=== PATIENT | male | born 1955 | race Caucasian/White ===

== ENCOUNTER → 2017-12-16 | Day surgery (SDC) | payer MEDICARE ==
[~2017-12-16] MED LIST: Bisacodyl PR; IV RINGERS,LACTATED 1000ML 1,000 ML IV SCH; NAPR-683 PO; NITR100C62 PO; PROPOFOL 20 ML IV ONE
--- NOTE | 2017-12-16 10:57 | PDOC1 ---
HISTORY & PHYSICAL H&P Adalid Milton [id number] 1955 12/02/2017 02:30 PM 03/31 [place] [facility], [facility] OUR PATIENTS COME FIRST [address] [place] [address] Ph. [phone] Patient: Adalid Milton Date of : 1955 Date: 12/02/2017 2:30 PM Visit Type: Office Visit This 62 year old male presents for dysphagia. History of Present Illness: 1. dysphagia Adalid Milton is a 62 year old male who presents for evaluation of dysphagia. The problem is ongoing. The onset was gradual. The severity is mild. The symptoms happen with dry food, bread and meat. He describes food sticking in the mid chest. The symptoms are felt to be related to Has issue cognitive function. There are no aggravating factors. There are no relieving factors. The pertinent history includes: H/o GERD beofre. Had been on meds. Not now because it caused more issue. He has had no prior studies. INTAKE COMMENTS: Intake Comments: patient states he is here because he is having trouble swallowing PROBLEM LIST: Problem Description Onset Date Chronic Clinical Status Notes GERD without esophagitis 10/09/2015 Cancer 07/11/2014 N PAST MEDICAL/SURGICAL HISTORY (Detailed) Disease/disorder Onset Date Management Date Comments Hernia repair 2000 GERD left AKA with hemipelvectomy 1978 for cancer small bowel obstruction with small bowel resectioin traumataic brain injury age 3 Family History (Detailed) Relationship Family Member Name Age at Condition Onset Age Cause of Mother Heart disease N Social History: (Detailed) Preferred language is [place] Zealander. Tobacco use status: Never smoked tobacco. Smoking status: Never smoker. TOBACCO/VAPING EXPOSURE No passive smoke exposure. ALCOHOL There is no history of alcohol use. CAFFEINE The patient uses caffeine: coffee - 2 cups a day. LIFESTYLE DIET healthy. HOME ENVIRONMENT/SAFETY The home has smoke detectors. Carbon monoxide detector at home. The home does not have radon present. Uses seat belts. Medications (active prior to today) Medication Name Sig Description Start Date Stop Date Refilled Rx Elsewhere Fish Oil Concentrate 1,000 mg capsule 1 po dialy 10/09/2015 N multivitamin tablet take 1 tablet by oral route every day with food 10/09/2015 N Laxative (bisacodyl) 5 mg tablet take 1 tablet by oral route every day 2015 N Tums E-X 300 mg (750 mg) chewable tablet 1 po every hs 04/03/2016 N Medication Reconciliation Medications reconciled today. Medication Reviewed Adherence Medication Name Sig Desc Elsewhere Status taking as directed Fish Oil Concentrate 1,000 mg capsule 1 po dialy N Verified taking as directed multivitamin tablet take 1 tablet by oral route every day with food N Verified taking as directed Laxative (bisacodyl) 5 mg tablet take 1 tablet by oral route every day N Verified taking as directed Tums E-X 300 mg (750 mg) chewable tablet 1 po every hs N Verified Medications (Added, Continued or Stopped today) Start Date Medication Directions PRN Status PRN Reason Instruction Stop Date 10/09/2015 Fish Oil Concentrate 1,000 mg capsule 1 po dialy N 10/09/2015 Laxative (bisacodyl) 5 mg tablet take 1 tablet by oral route every day N 10/09/2015 multivitamin tablet take 1 tablet by oral route every day with food N 04/03/2016 Tums E-X 300 mg (750 mg) chewable tablet 1 po every hs N Allergies: Ingredient Reaction (Severity) Medication Name Comment NO KNOWN ALLERGIES ORDERS: Status Lab Order Time Frame Comments ordered Enema, therapeutic (contrast or air); for reduction of intussusception or obstruction -today ordered follow-up visit with Francine Argueta APRN after testing is done. ordered BMP -today ordered CBC w/diff -today ordered Lipid Panel -today ordered TSH -today ordered PSA -today ordered follow-up visit in 6 Months in 6 Months ordered LFT -today ordered Lipid Profile -today ordered TSH 3rd Generation -today ordered PSA -today ordered follow-up visit in 1 Year in 1 Year ordered BMP -today ordered X-RAY EXAM OF ANKLE Right ordered X-RAY EXAM OF LOWER LEG Right ordered follow-up visit in 6 Months in 6 Months ordered BMP -today ordered LFT -today ordered Lipid Profile -today ordered PSA -today ordered TSH -today ordered follow-up visit in 6 Months or by 05/27/2018 in 6 Months or by 2018 ordered Referrals: Gastroenterology. Evaluate and treat cant swallow meats. says it gets stuck in chest. evaluate for egd and possible esophageal dilatation ordered EGD w/ dilation over guidewire -today ordered follow-up visit with Lavelle Joyner MD upon completion of work-up upon completion of work-up System Neg/Pos Details Constitutional Negative Chills, Fever and Malaise. ENMT Negative Sore throat. Eyes Negative Double vision. Respiratory Negative Dyspnea and Wheezing. Cardio Negative Chest pain and Irregular heartbeat/palpitations. GI Positive See HPI. GI Negative See HPI. Negative Dysuria and Hematuria. Endocrine Negative Cold intolerance and Heat intolerance. Psych Negative Anxiety. Integumentary Negative Hives and Rash. MS Negative Joint pain. Peter/Lymph Negative Easy bleeding and Easy bruising. Allergic/Immuno Negative Food allergies. Vital Signs Time BP mm/Hg Pulse /min Resp /min Temp F Ht ft Ht in Ht cm Wt lb Wt kg BMI kg/ m2 BSA m2 O2 Sat% 2:30 PM 100/60 76 14 97.7 96 Comments Time Comments 2:30 PM Unable to obtain Weight. Measured By Time Measured by 2:30 PM Belkis Swygert PHYSICAL EXAM: Exam Findings Details Male GI Quick Exam Comments Left leg amputation from pelvis Constitutional Normal Well developed. Eyes Normal Conjunctiva - Right: Normal, Left: Normal. Sclera - Right: Normal, Left: Normal. Nasopharynx Normal Lips/teeth/gums - Normal. Neck Exam Normal Inspection - Normal. Thyroid gland - Normal. Respiratory Normal Inspection - Normal. Auscultation - Normal. Cardiovascular Normal Regular rate and rhythm. No murmurs, gallops, or rubs. Abdomen Normal Inspection - Normal. Anterior palpation - No guarding. No abdominal tenderness. No hepatic enlargement. No spleen enlargement. No hernia. No ascites. Skin Normal Inspection - Normal. Extremity Normal No edema. Psychiatric Normal Orientation - Oriented to time, place, person & situation. Appropriate mood and affect. Assessment/Plan # Detail Type Description 1. Assessment Dysphagia, unspecified type (R13.10). Patient Plan schedule EGD at [facility] Plan Orders Further diagnostic evaluations ordered today include(s) EGD w/ dilation over guidewire to be performed today. He is to schedule a follow-up visit with Lavelle Joyner MD upon completion of work-up. Co-Sign Orders Order Ordering Provider Cosigned Name Cosigned Date Cosigner Comments EGD w/ dilation over guidewire Lavelle Joyner 12/02/2017 follow-up visit with Lavelle Joyner MD upon completion of work-up Lavelle Joyner 12/02/2017 Active Patient Care Team Members Name Contact Agency Type Support Role Relationship Active Date Inactive Date Specialty Abisai Joyner MD Patient provider PCP Internal Med Provider: Lavelle Joyner MD 12/02/2017 2:47 PM Shabnam Loza MD[facility]; Luis Rose MD Internal Medicine; Yann Sims MD, Internal Medicine; Abisai Joyner MD Internal Medicine; Lavelle Joyner MD, Gastroenterology; Deon Le MD, Rheumatology, J. BurnhamMegan JORGENSENN ------ 12/16/17 Patient seen and examined. No change in H&P. LAVELLE JOYNER MD Dec 16, 2017 10:57
[2017-12-16 12:00] VITALS: BP 121/75
--- NOTE | 2017-12-18 09:13 | PATHOLOGY ---
[facility] Accession Number: [id number] . 01 Material submitted: . PART A: BIOPSY DISTAL ESOPHAGUS STRICTURE PART B: BIOPSY MIDDLE ESOPHAGUS . 01 Clinical history: . Pre-OP DX: Dysphagia Post-OP DX: Esophageal stricture, Cindy, esophagitis . 02 Diagnosis: A. Esophageal biopsies, distal esophageal stricture: - Segments of esophagogastric and gastric mucosa showing chronic inflammation. . B. Esophageal biopsy, middle esophagus: - Segment of mildly hyperplastic squamous esophageal mucosa showing focal presence of yeast and pseudohyphae consistent with Cindy esopagitis. [facility]/12/18/2017 . 02 Comment: Sections of the distal esophageal stricture biopsies reveal segments of esophagogastric and gastric mucosa showing [id number] chronic inflammation. There is no evidence of Hoskins's change, dysplasia, or malignancy. Sections of the middle esophagus biopsy reveal a segment of tangentially-oriented hyperplastic squamous esophageal mucosa showing focal chronic inflammation. There are focal colonies of bacteria present on the mucosal surface. A PAS stain for yeast/fungus also reveal admixed yeast and pseudohyphae consistent with Cindy esophagitis. . Special stain performed: PAS stain for yeast / fungus on B1. . (JPM:mmamarjit; 12/17/17) . 02 Electronically signed: . Domenic Gao MD, Pathologist NPI- [id number] . 01 Gross description: . A. Received in formalin labeled "Adalid Milton BX distal esophagus stricture," are 2 segments of witt soft tissue measuring 0.8 x 0.2 x 0.2 cm in aggregate dimensions and ranging from 0.3 to 0.5 cm in maximum dimension. The specimen is submitted entirely in cassette A1. . B. Received in formalin labeled "Milton, Adalid, BX middle esophagus," is a single segment of witt soft tissue measuring 0.5 cm in maximum dimension. The specimen is entirely submitted in cassette B1. (TSD; 12/16/2017) TOB/TOB . 02 Pathologist provided ICD-10: K20.9, B37.81 . 02 CPT . 035665, 866540, 419279 Specimen Comment: A courtesy copy of this report has been sent to Specimen Comment: [phone]. Specimen Comment: Report sent to / DR WASHBURN Performed at: 01 [facility] [address] [id number] MD Joseph Hatch MD Phone: [phone] Performed at: 02 [facility] [address] [place], [place] [id number] MD Domenic Gao MD Phone: [phone]
== END | disposition home or self-care (01) ==
LOC: SURG 10:34
PROVIDERS: ATTEND Internal Medicine Gastroenterology
DX: K22.2 Esophageal obstruction (principal); B37.81 Candidal esophagitis; Z88.8 Allergy status to other drugs, medicaments and biological substances; Z98.890 Other specified postprocedural states; Z82.49 Family history of ischemic heart disease and other diseases of the circulatory system; Z79.899 Other long term (current) drug therapy
CPT/HCPCS: 43239; 43249; 88305; 88313; J2704

== ENCOUNTER 2018-01-08 12:04 | Emergency (ER) | payer MEDICARE ==
[~2018-01-08] VITALS: Ht 162.6 cm; Wt 74.8 kg
[~2018-01-08 12:04] MED LIST changes: -IV RINGERS,LACTATED 1000ML 1,000 ML IV SCH; -PROPOFOL 20 ML IV ONE
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
[2018-01-08 13:01] LABS: BILIRUBIN,URINE NEGATIVE (NEG); CLARITY,URINE CLEAR; COLOR,URINE YELLOW; NITRITE,URINE NEGATIVE (NEG); PH,URINE 6.5; PROTEIN,URINE NEGATIVE (NEG-TRACE); UROBILINOGEN,URINE 0.2 mg/dL (0.2 mg/dL)
--- NOTE | 2018-01-08 13:04 | EKG ---
[facility] [address] [place] [address] Test Date: 2018-01-08 Test Time: 12:34:56 Pat Name: CHELSEA KAHN Department: Room: Gender: M Shower Maid: : 1955 Requested By: CHRISTINE VASQUEZ Order Number: [id number] Reading MD: Jose Reyes MD Measurements Intervals Ward Rate: 78 P: -43 NH: 222 QRS: 2 QRSD: 74 T: 20 QT: 354 QTc: 407 Interpretive Statements SINUS RHYTHM PROLONGED NH INTERVAL Electronically Signed On 01-12-2018 8:43:17 CDT by Jose Reyes MD
[2018-01-08 13:27] LABS: BACTERIA,URINE 0 /HPF (0-FEW); RBC,URINE 0 /HPF (0-2); SQUAMOUS EPITHELIAL CELL,UR OCC /LPF; WBC,URINE 0 /HPF (0-4)
--- NOTE | 2018-01-08 13:33 | RAD ---
Rib series including frontal chest radiograph and 4 views of the right ribs 01/08/2018 INDICATION: Fall. Right-sided chest pain. COMPARISON STUDY: Abdominal series May 26, 2014. FINDINGS: No pneumothorax or pleural effusion is seen. The right hemidiaphragm is elevated. Heart size is normal. No focal consolidative infiltrate is seen. No displaced rib fractures are identified. IMPRESSION: No evidence of displaced rib fracture or other acute cardiopulmonary process Electronically signed by: Hubert Frazier MD (01/08/2018 1:30 PM) [facility]
--- NOTE | 2018-01-08 15:06 | RAD ---
Examination: Single frontal view the pelvis HISTORY: History of right hip pain, fall, history of pelvic cancer COMPARISON: CT from 11/10/2015 Findings/ impression: Prior changes of for left hemipelvectomy. Severe degenerative changes right hip joint. Dysplastic changes of the right femoral head similar to prior exam. Surgical clips identified in the pelvis. Electronically signed by: Amilcar Cody MD (01/08/2018 3:03 PM) [place] [id number]
[2018-01-08 16:00] VITALS: BP 130/69
--- NOTE | 2018-01-08 16:09 | RAD ---
PQRS Compliance Statement: One or more of the following individualized dose reduction techniques were utilized for this examination: 1. Automated exposure control 2. Adjustment of the mA and/or kV according to patient size 3. Use of iterative reconstruction technique CT PELVIS WO CONTRAST Clinical Indication: FALL, RIGHT HIP PAIN, LEFT HEMIPELVECTOMY - CANCER. Comparison: CT abdomen and pelvis with contrast, November 10, 2015. TECHNIQUE: Helical CT imaging of the pelvis is performed without IV contrast. Findings: Redemonstrated findings of left hemipelvectomy. There is marked degenerative arthropathy of the right hip with bony remodeling with splaying and flattening of the acetabulum and the femoral head. There is periarticular sclerosis and subchondral cysts. There is no acute fracture. Large left ventral hernia containing bowel and mesenteric vessels is partially imaged. There are multiple surgical clips in the soft tissues. No pelvic free fluid. Urinary bladder is normal. IMPRESSION: 1. No acute fracture of the right hip. 2. Marked arthropathy of the right hip. Electronically signed by: Keith Rudolph MD (01/08/2018 4:06 PM) [id number]
== END 2018-01-08 16:25 | disposition home or self-care (01) ==
LOC: ER 12:04
DX: R07.81 Pleurodynia (principal); M25.551 Pain in right hip; M12.851 Other specific arthropathies, not elsewhere classified, right hip; K43.9 Ventral hernia without obstruction or gangrene; Z88.6 Allergy status to analgesic agent
CPT/HCPCS: 71101; 72192; 73502; 81001; 93005; 99285

== ENCOUNTER → 2018-01-20 | Day surgery (SDC) | payer MEDICARE ==
[~2018-01-20] MED LIST changes: +FLUC100T7 PO; +LANS30CA PO; +MULT1TAB52 PO; +OMEG1CAP6 PO; +PROPOFOL 40 ML IV ONE
--- NOTE | 2018-01-20 10:22 | PDOC1 ---
HISTORY & PHYSICAL H&P Adalid Milton [id number] 1955 12/31/2017 02:40 PM 03/31 [employer] [facility] OUR PATIENTS COME FIRST [address] [place] [id number] Ph. [phone] Patient: Adalid Milton Date of : 1955 Date: 12/31/2017 2:40 PM Visit Type: Office Visit This 62 year old male presents for follow up of EGD. History of Present Illness: 1. Follow Up of EGD Patient recently had EGD and here for followup and discussion of the result. EGD/bx if done revealed following findings. EGD w/ dilation over guidewire ordered on is abnormal. Results: Monilial esophagitis. Biopsied- consistent with monilial infection. Patient on diflucan. Benign-appearing esophageal stenosis. Dilated. Biopsied - Reflux esophagitis. No cancer. Normal stomach Normal examined duodenum Result discussed with the patient, and his mother. Patient has been feeling much better as to dysphagia. Has been on Prevacid solutab 30 mg daily. Has course of diflucan for monilial infection of the esophagus. Anti reflux diet and precaution discussed. INTAKE COMMENTS: Intake Comments: patient states he is here for a follow up PROBLEM LIST: Problem Description Onset Date Chronic Clinical Status Notes GERD without esophagitis 10/09/2015 Cancer 07/11/2014 N PAST MEDICAL/SURGICAL HISTORY (Detailed) Disease/disorder Onset Date Management Date Comments Hernia repair 2000 GERD left AKA with hemipelvectomy 1978 for cancer small bowel obstruction with small bowel resectioin traumataic brain injury age 3 Family History (Detailed) Relationship Family Member Name Age at Condition Onset Age Cause of Mother Heart disease N Social History: (Detailed) Preferred language is Moldovan. Tobacco use status: Never smoked tobacco. Smoking status: Never smoker. TOBACCO/VAPING EXPOSURE No passive smoke exposure. ALCOHOL There is no history of alcohol use. CAFFEINE The patient uses caffeine: coffee - 2 cups a day. LIFESTYLE DIET healthy. HOME ENVIRONMENT/SAFETY The home has smoke detectors. Carbon monoxide detector at home. The home does not have radon present. Uses seat belts. Medications (active prior to today) Medication Name Sig Description Start Date Stop Date Refilled Rx Elsewhere Fish Oil Concentrate 1,000 mg capsule 1 po dialy 10/09/2015 N multivitamin tablet take 1 tablet by oral route every day with food 10/09/2015 N Laxative (bisacodyl) 5 mg tablet take 1 tablet by oral route every day 2015 N Tums E-X 300 mg (750 mg) chewable tablet 1 po every hs 04/03/2016 N Diflucan 100 mg tablet take 1 tablet by oral route every day 12/25/2017 N Medication Reconciliation Medications reconciled today. Medication Reviewed Adherence Medication Name Sig Desc Elsewhere Status taking as directed Fish Oil Concentrate 1,000 mg capsule 1 po dialy N Verified taking as directed multivitamin tablet take 1 tablet by oral route every day with food N Verified taking as directed Laxative (bisacodyl) 5 mg tablet take 1 tablet by oral route every day N Verified taking as directed Tums E-X 300 mg (750 mg) chewable tablet 1 po every hs N Verified taking as directed Diflucan 100 mg tablet take 1 tablet by oral route every day N Verified Medications (Added, Continued or Stopped today) Start Date Medication Directions PRN Status PRN Reason Instruction Stop Date 12/25/2017 Diflucan 100 mg tablet take 1 tablet by oral route every day N 10/09/2015 Fish Oil Concentrate 1,000 mg capsule 1 po dialy N 12/31/2017 lansoprazole 30 mg delayed release,disintegrating tablet take 1 tablet by oral route every day and place on top of the tongue where it will dissolve, then swallow N 10/09/2015 Laxative (bisacodyl) 5 mg tablet take 1 tablet by oral route every day N 10/09/2015 multivitamin tablet take 1 tablet by oral route every day with food N 04/03/2016 Tums E-X 300 mg (750 mg) chewable tablet 1 po every hs N Allergies: Ingredient Reaction (Severity) Medication Name Comment NO KNOWN ALLERGIES Review of Systems System Neg/Pos Details Constitutional Negative Chills, Fever and Malaise. ENMT Negative Sore throat. Eyes Negative Double vision. Respiratory Negative Dyspnea and Wheezing. Cardio Negative Chest pain and Irregular heartbeat/palpitations. GI Positive See HPI. GI Negative See HPI. Negative Dysuria and Hematuria. Endocrine Negative Cold intolerance and Heat intolerance. Psych Negative Anxiety. Integumentary Negative Hives and Rash. MS Negative Joint pain. Peter/Lymph Negative Easy bleeding and Easy bruising. Allergic/Immuno Negative Food allergies. Vital Signs Time BP mm/Hg Pulse /min Resp /min Temp F Ht ft Ht in Ht cm Wt lb Wt kg BMI kg/ m2 BSA m2 O2 Sat% 2:44 PM 124/68 85 14 97.3 93 Measured By Time Measured by 2:44 PM Belkis Swygert PHYSICAL EXAM: Exam Findings Details Constitutional Normal Well developed. Eyes Normal Conjunctiva - Right: Normal, Left: Normal. Sclera - Right: Normal, Left: Normal. Nasopharynx Normal Lips/teeth/gums - Normal. Neck Exam Normal Inspection - Normal. Thyroid gland - Normal. Respiratory Normal Inspection - Normal. Auscultation - Normal. Cardiovascular Normal Regular rate and rhythm. No murmurs, gallops, or rubs. Abdomen Normal Inspection - Normal. Anterior palpation - No guarding. No abdominal tenderness. No hepatic enlargement. No spleen enlargement. No hernia. No ascites. Skin Normal Inspection - Normal. Extremity Normal No edema. Psychiatric Normal Orientation - Oriented to time, place, person & situation. Appropriate mood and affect. Assessment/Plan # Detail Type Description 1. Assessment Esophageal stricture (K22.2). Patient Plan Continue Prevacid. schedule EGD at [facility] for repeat dilation. Plan Orders Further diagnostic evaluations ordered today include(s) EGD to be performed today. He is to schedule a follow-up visit with Lavelle Joyner MD upon completion of work-up. Co-Sign Orders Order Ordering Provider Cosigned Name Cosigned Date Cosigner Comments EGD Lavelle Joyner 12/31/2017 follow-up visit with Lavelle Joyner MD upon completion of work-up Lavelle Joyner 12/31/2017 Active Patient Care Team Members Name Contact Agency Type Support Role Relationship Active Date Inactive Date Specialty Abisai Joyner MD Patient provider PCP Internal Med Document Electronically signed: Lavelle Joyner MD 12/31/2017 03:05 PM Document generated by: Lavelle Joyner 12/31/2017 Shabnam Loza MD, Family Practice; Luis Rose MD Internal Medicine; Yann Sims MD, Internal Medicine; Abisai Joyner MD Internal Medicine; Lavelle Joyner MD, Gastroenterology; Deon Le MD, Rheumatology, Kathy Hernandez APRN ------ 01/20/18 Patient seen and examined. No change in H&P. LAVELLE JOYNER MD Jan 20, 2018 10:22
[2018-01-20] MEDS: IV RINGERS,LACTATED 1000ML 1,000 ML IV SCH (10:26)
[2018-01-20 11:48] VITALS: BP 102/57
== END | disposition home or self-care (01) ==
LOC: ENDOS 10:00
PROVIDERS: ATTEND Internal Medicine Gastroenterology
DX: K22.2 Esophageal obstruction (principal); K44.9 Diaphragmatic hernia without obstruction or gangrene; K21.9 Gastro-esophageal reflux disease without esophagitis; Z98.890 Other specified postprocedural states; Z90.49 Acquired absence of other specified parts of digestive tract; Z82.49 Family history of ischemic heart disease and other diseases of the circulatory system; Z79.899 Other long term (current) drug therapy
CPT/HCPCS: 43249; J2704; 43248; 43450

== ENCOUNTER → 2019-03-01 | Day surgery (SDC) | payer MEDICARE ==
[~2019-03-01] MED LIST changes: +IV RINGERS,LACTATED 1000ML 1,000 ML IV SCH; +LIDOCAINE 1% PF 2 ML VIAL. ID PRN; +LIDOCAINE 2% PF 5 ML VIAL. ONE; +MIDAZOLAM HCL/PF 2 MG/2 ML VIAL. IV PRN; +PROPOFOL 20 ML IV ONE; -PROPOFOL 40 ML IV ONE; +fentaNYL PF VIAL 100 MCG/2 ML VIAL IV PRN
--- NOTE | 2019-03-01 14:53 | PDOC4 ---
PROCEDURE Procedure EGD/esophageal dilation Indication: dysphagia/history stricture Meds: per anesthesia Findings: E--Soft, stricture at 40cm. Dilated some with scope passage. G--Small HH D--Normal to second portion. Dilated with 42 Coffman with some resistance; re-examined after and noticeably larger lumen. Emggan. well. IMP: Esophageal stricture, dilated HH REC: Resume meds, diet as before. F/u in 2 weeks. May need further sessions. DC ERAZO MD Mar 01, 2019 14:53
[2019-03-01 15:26] VITALS: BP 122/70
== END ==
LOC: ENDOS 13:58
PROVIDERS: ATTEND Internal Medicine Gastroenterology
DX: R13.10 Dysphagia, unspecified (principal); K44.9 Diaphragmatic hernia without obstruction or gangrene; K22.2 Esophageal obstruction; K21.9 Gastro-esophageal reflux disease without esophagitis; E78.5 Hyperlipidemia, unspecified; K56.609 Unspecified intestinal obstruction, unspecified as to partial versus complete obstruction
CPT/HCPCS: 43235; 43450; J2001; J2704

== ENCOUNTER → 2019-12-29 | Outpatient (CLI) | payer MEDICARE ==
[2019-03-01 15:26] VITALS: BP 122/70
[~2019-12-29] MED LIST changes: -IV RINGERS,LACTATED 1000ML 1,000 ML IV SCH; -LIDOCAINE 1% PF 2 ML VIAL. ID PRN; -LIDOCAINE 2% PF 5 ML VIAL. ONE; -MIDAZOLAM HCL/PF 2 MG/2 ML VIAL. IV PRN; +MULT-445 PO; -MULT1TAB52 PO; -PROPOFOL 20 ML IV ONE; -fentaNYL PF VIAL 100 MCG/2 ML VIAL IV PRN
== END | disposition home or self-care (01) ==
LOC: LAB 14:02
PROVIDERS: ATTEND Internal Medicine Gastroenterology
DX: Z01.812 Encounter for preprocedural laboratory examination (principal); R13.10 Dysphagia, unspecified; Z20.828 Contact with and (suspected) exposure to other viral communicable diseases
CPT/HCPCS: U0003-CS

== ENCOUNTER → 2020-01-03 | Day surgery (SDC) | payer MEDICARE ==
[~2020-01-03] MED LIST changes: +ASCO500C PO; +CHOL-5 PO; +IV RINGERS,LACTATED 1000ML 1,000 ML IV SCH; +OMEP20TA8 PO; +PROPOFOL 10 MG/ML (20ML) VIAL. IV ONE
--- NOTE | 2020-01-03 13:04 | PDOC1 ---
History and Physical Date of Admission Date of Admission DATE: 01/03/20 TIME: 12:59 Source Source: Chart review History of Present Illness History of Present Illness 64 y/o male with esophageal stricture, felt peptic. Prior EGD with dilation; having more dysphagia. On PPI. 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) Past Surgical History Past Surgical History: Other (for the sarcoma) Family History Family History: Hypertension Social History Smoke: No ALCOHOL: none Drugs: None Current Medications Current Medications Current Medications Ringer's Solution 1,000 ml @ 50 mls/hr Q20H IV Last administered on 01/03/20at 12:43; Start 01/03/20 at 07:00; Stop 01/03/20 at 18:59 Propofol (Diprivan) 200 mg STK-MED ONCE IV ; Start 01/03/20 at 12:33; Stop 01/03/20 at 12:33; Status DC Active Scripts Active [Bisacodyl] 10 MG Supp.rect 10 Mg HI PRN DAILY PRN Reported Omeprazole 20 Mg Tablet.dr 1 Tab PO DAILY Vitamin C (Ascorbic Acid) 500 Mg Capsule.er 1 Cap PO DAILY 30 Days Vitamin D3 (Cholecalciferol (Vitamin D3)) 250 Mcg Tablet 500 Mcg PO DAILY Multivitamins (Multivitamin) 1 Each Tablet 1 Tab PO DAILY Allergies Allergies: Coded Allergies: No Known Drug Allergies (Unverified , 01/03/20) ROS Review of System Otherwise negative. Physical Exam General: Alert, Cooperative, No acute distress Lungs: Clear to auscultation Heart: S1S2, RRR, no gallops, no murmurs Abdomen: Normal bowel sounds, Soft, No tenderness, No hepatosplenomegaly, No masses Rectal Exam: not examined Extremities: No clubbing, No cyanosis, No edema Skin: No significant lesion Neuro: Normal speech, Strength at 5/5 X4 ext, Normal tone, Sensation intact, Cranial nerves 3-12 NL, Reflexes 2+ Psych/Mental Status: Mental status NL, Mood NL Vitals Vitals Vital Signs Date Time Temp Pulse Resp B/P (MAP) Pulse Ox O2 Delivery O2 Flow Rate FiO2 01/03/20 12:34 97.2 82 18 96 97.2 VTE Prophylaxis Ordered VTE Prophylaxis Devices: No VTE Pharmacological Prophylaxi: No Assessment/Plan Assessment/Plan IMP: History of stricture, increasing dysphagia PLAN: EGD/dilation. DC ERAZO MD Jan 03, 2020 13:04
--- NOTE | 2020-01-03 13:22 | PDOC4 ---
PROCEDURE Procedure EGD/dilation Indication: h/o stricture, dysphagia Meds: per anesthesia Findings: E--stricture at GEJ; able to pass with 'scope with minimal pressure. G--Normal save small HH. D--Normal to second portion. --attempted dilating with 42F Coffman but too much resistance. 40F would pass. Tried 42F again, but too much resistance. Meggan.well. IMP: Stricture, dilated to 40F. Small HH. REC: continue meds, diet as now. Will suggest re-EGD in 3-4 weeks. Hard to get ahead of the stricture. DC ERAZO MD Jan 03, 2020 13:22
[2020-01-03 13:50] VITALS: BP 134/67
== END | disposition home or self-care (01) ==
LOC: ENDOS 12:10
PROVIDERS: ATTEND Internal Medicine Gastroenterology
DX: K22.2 Esophageal obstruction (principal); E78.5 Hyperlipidemia, unspecified; K21.9 Gastro-esophageal reflux disease without esophagitis; Z98.890 Other specified postprocedural states; Z79.899 Other long term (current) drug therapy
CPT/HCPCS: 43450; J2704

== ENCOUNTER → 2020-02-04 | Outpatient (CLI) | payer MEDICARE ==
[2020-01-03 13:50] VITALS: BP 134/67
[~2020-02-04] MED LIST changes: -IV RINGERS,LACTATED 1000ML 1,000 ML IV SCH; -PROPOFOL 10 MG/ML (20ML) VIAL. IV ONE
== END ==
LOC: LAB 12:21
PROVIDERS: ATTEND Internal Medicine Gastroenterology
DX: Z01.812 Encounter for preprocedural laboratory examination (principal); Z20.828 Contact with and (suspected) exposure to other viral communicable diseases
CPT/HCPCS: U0003

== ENCOUNTER → 2020-02-07 | Day surgery (SDC) | payer MEDICARE ==
[~2020-02-07] MED LIST changes: +IV RINGERS,LACTATED 1000ML 1,000 ML IV SCH; +LIDOCAINE 2% PF 5 ML VIAL. ONE; +PROPOFOL 10 MG/ML (20ML) VIAL. IV ONE
--- NOTE | 2020-02-07 13:26 | PDOC1 ---
History and Physical Date of Admission Date of Admission DATE: 02/07/20 TIME: 13:22 Identification/Chief Complaint Chief Complaint Esophageal stricture Source Source: Chart review History of Present Illness History of Present Illness 64 y/o male with recurrent esophageal stricture. Last EGD/dil 01/03/20. Returns for further dilation. Past Medical History Heme/Onc: Other Psych: Other Past Surgical History Past Surgical History: Other Family History Family History: Hypertension Social History ALCOHOL: none Drugs: None Current Medications Current Medications Current Medications Ringer's Solution 1,000 ml @ 50 mls/hr Q20H IV Last administered on 02/07/20at 12:43; Start 02/07/20 at 07:00; Stop 02/07/20 at 19:00 Propofol (Diprivan) 200 mg STK-MED ONCE IV ; Start 02/07/20 at 13:09; Stop 02/07/20 at 13:09; Status DC Lidocaine HCl (Lidocaine Pf 2% Vial) 5 ml STK-MED ONCE .ROUTE ; Start 02/07/20 at 13:09; Stop 02/07/20 at 13:09; Status DC Active Scripts Active [Bisacodyl] 10 MG Supp.rect 10 Mg MT PRN DAILY PRN Reported Omeprazole 20 Mg Tablet.dr 1 Tab PO DAILY Vitamin C (Ascorbic Acid) 500 Mg Capsule.er 1 Cap PO DAILY 30 Days Vitamin D3 (Cholecalciferol (Vitamin D3)) 250 Mcg Tablet 500 Mcg PO DAILY Multivitamins (Multivitamin) 1 Each Tablet 1 Tab PO DAILY Allergies Allergies: Coded Allergies: No Known Drug Allergies (Unverified , 02/07/20) ROS Review of System Negative Physical Exam General: Alert, Oriented X3, Cooperative, No acute distress Lungs: Clear to auscultation Heart: S1S2, RRR, no gallops, no murmurs Abdomen: Normal bowel sounds, Soft, No tenderness, No hepatosplenomegaly, No masses Rectal Exam: deferred Extremities: No cyanosis, No edema Skin: No significant lesion Neuro: Normal speech, Strength at 5/5 X4 ext, Normal tone, Sensation intact, Cranial nerves 3-12 NL, Reflexes 2+ Psych/Mental Status: Mental status NL, Mood NL Vitals Vitals Vital Signs Date Time Temp Pulse Resp B/P (MAP) Pulse Ox O2 Delivery O2 Flow Rate FiO2 02/07/20 12:33 77 20 99 VTE Prophylaxis Ordered VTE Prophylaxis Devices: No VTE Pharmacological Prophylaxi: No Assessment/Plan Assessment/Plan IMP: Recurrent/refractory stricture PLAN: EGD/dilate. DC ERAZO MD Feb 07, 2020 13:26
--- NOTE | 2020-02-07 13:47 | PDOC4 ---
PROCEDURE Procedure EGD/balloon dilation Indication: Recurrent esophageal stricture Meds; per anesthesia Findings: E--stricture at 40cm--able to pass with ~12mm scope with mild resistance. G--Small HH D--Normal to second portion. --Dilation with 13.5mm balloon. Some blood after. lumen larger. Given bleeding, no further dilation. Meggan. well. IMP: Esophageal stricture, dilated. HH REC: Continue PPI. Repeat scope 3-4 weeks. Office will call. DC ERAZO MD Feb 07, 2020 13:47
[2020-02-07 14:10] VITALS: BP 136/79
== END | disposition home or self-care (01) ==
LOC: ENDOS 12:12
PROVIDERS: ATTEND Internal Medicine Gastroenterology
DX: K22.2 Esophageal obstruction (principal); K44.9 Diaphragmatic hernia without obstruction or gangrene; R13.10 Dysphagia, unspecified; K21.9 Gastro-esophageal reflux disease without esophagitis; Z82.49 Family history of ischemic heart disease and other diseases of the circulatory system; Z83.3 Family history of diabetes mellitus; Z79.899 Other long term (current) drug therapy; Z98.890 Other specified postprocedural states
CPT/HCPCS: 43249; J2704; 43233